=== PATIENT | male | born 2000 | race Caucasian/White ===

== ENCOUNTER 2023-07-01 01:48 | Emergency (ER) | payer OTHER ==
[~2023-07-01] VITALS: Ht 165.1 cm; Wt 54.9 kg
[2023-07-01] MEDS ORDERED: ACET-683 PO (01:54)
[2023-07-01] MEDS: AUGMENTIN 875 MG TAB PO ONE (03:23)
[2023-07-01] MEDS: traMADol 50 MG TAB PO ONE (03:23)
[2023-07-01] MEDS: IBUPROFEN 800 MG TAB PO ONE (03:23)
[2023-07-01] MEDS ORDERED: TRAM50TA2 PO (03:27)
[2023-07-01] MEDS ORDERED: AMOX875T2 PO (03:27)
[2023-07-01] MEDS ORDERED: IBUP80TA PO (03:27)
[2023-07-01] MEDS: traMADol 50 MG TAB (HOME DOSE PACK) PO ONE (03:40)
[2023-07-01 03:49] VITALS: BP 125/69; TEMP 97.5; O2SAT 100
== END 2023-07-01 03:45 | disposition home or self-care (01) ==
LOC: M ED 01:48
DX: K04.7 Periapical abscess without sinus (principal); K08.89 Other specified disorders of teeth and supporting structures; Z79.1 Long term (current) use of non-steroidal anti-inflammatories (NSAID); Z79.2 Long term (current) use of antibiotics; Z79.899 Other long term (current) drug therapy